=== PATIENT | male | born 1965 | race Asian ===

== ENCOUNTER 2017-03-21 12:05 | Emergency (ER) | payer BC, OTHER ==
[~2017-03-21] VITALS: Ht 162.6 cm; Wt 65.0 kg
[2017-03-21] MEDS ORDERED: IBUP-1547 PO (12:14)
[2017-03-21] MEDS ORDERED: HYDROCODONE/ACETAMINOPHEN 5-325 MG TABLET PO ONE (12:45)
[2017-03-21 13:48] VITALS: BP 121/68
== END 2017-03-21 13:51 | disposition home or self-care (01) ==
LOC: EMS 12:06
DX: S63.91XA Sprain of unspecified part of right wrist and hand, initial encounter (principal); M79.641 Pain in right hand; X50.9XXA Other and unspecified overexertion or strenuous movements or postures, initial encounter; Y93.89 Activity, other specified; Y92.69 Other specified industrial and construction area as the place of occurrence of the external cause; Y99.0 Civilian activity done for income or pay
CPT/HCPCS: 99284